=== PATIENT | male | born 1980 | race Caucasian/White ===

== ENCOUNTER 2017-06-16 18:03 | Emergency (ER) | payer BC ==
[~2017-06-16] VITALS: Ht 175.3 cm; Wt 69.4 kg
[2017-06-16 20:22] LABS: SOURCE URINE
[2017-06-16 20:28] LABS: APPEARANCE CLEAR ((CLEAR)); BILIRUBIN NEGATIVE; BLOOD NEGATIVE; COLOR YELLOW ((YELLOW)); GLUCOSE (STRIP) NEGATIVE; KETONES NEGATIVE; LEUKOCYTES NEGATIVE; NITRITE NEGATIVE; PROTEIN (STRIP) NEGATIVE; SPECIFIC GRAVITY 1.025 (1.000-1.030); UCUL ADDED? NO; UROBILINOGEN 0.2 MG/DL (0.2-1.0)
[2017-06-16] MEDS ORDERED: VIBRAMYCIN100 MG PO (20:57)
[2017-06-16 21:18] VITALS: BP 115/66
[2017-06-18 13:52] LABS: CHLAMYDIA TRACHOMATIS NEGATIVE; NEISSERIA GONORRHOEAE NEGATIVE
== END 2017-06-16 21:18 | disposition home or self-care (01) ==
LOC: EME 18:03
PROVIDERS: Physician Assistant Medical
DX: N50.819 Testicular pain, unspecified (principal); F17.200 Nicotine dependence, unspecified, uncomplicated
CPT/HCPCS: 76870; 81003; 87491; 87591; 99281; 99284